=== PATIENT | female | born 1960 | race Caucasian/White ===

== ENCOUNTER 2023-07-23 10:34 | Emergency (ER) | payer BC, SELFPAY ==
[2023-07-23 10:37] VITALS: BP 157/94
--- NOTE | 2023-07-23 13:27 | ED.GENMED ---
History of Present Illness
General
Chief Complaint: Musculo-Skeletal Complaint
Source: patient
Exam Limitations: none
Time Seen by Provider: 07/23/23 10:55
Nursing documentation reviewed up to this point in time: agreed with
Travel History
Have you had any contact with someone who has COVID-19?: No
Do you have any symptoms of coronavirus? Fever > 100 degrees, chills, cough, shortness of breath, sore throat, loss of taste or smell, muscle aches, or headache?: No
History of Present Illness
History of Present Illness:
63-year-old female with past medical history of asthma presenting to the emergency department today with concerns of left-sided calf and ankle discomfort over the past few days denies any inciting event or injury to the area denies numbness or
weakness or additional concerns. No history of blood clots.
Past History
Past History
ED Past Medical History: Asthma
ED Past Surgical History: Orthopedic
Social History
Tobacco: Non-smoker
Alcohol: None
Drug: None
Personal:
Living: with family
Employment: Employed
Review of Systems
Review of Systems
Allergies reviewed?: Yes
All Other Systems: ROS reviewed and negative except as documented in HPI and ROS
Phy Exam
Physical Exam
Physical Exam:
GENERAL: Alert , in no apparent distress
EYE: pupils equal and reactive
NECK: Supple, no significant adenopathy.
ENT: o/p clr, mmm.
CARDIAC: Regular rate and rhythm .
LUNGS: Clear breath sounds bilaterally, no acute respiratory distress, no wheezes/rales/rhonchi
ABDOMEN: Soft, without focal tenderness, no r/g, no cvat
NEUROLOGICAL: Alert and oriented, no focal neuro deficits
SKIN: Warm and dry, skin intact.
MUSCULOSKELETAL: Mild discomfort when squeezing the gastroc tenderness above the patient to the posterior distal Achilles tendon. Mild tenderness to the posterior heel region. No redness or warmth no swelling no tenderness to remainder of the foot
or knee., well perfused.
PSYCH: Normal and appropriate interaction.
Course
Orders/Labs/Results
Orders:
Orders
07/23/23 11:00
Calcaneus, Left 2 View [CR Heel/os Calcis - Left 2 Vw*] Urgent
Comment:
Reason For Exam: pain
Venous Doppler Lwr Ext Left [US Periph Venous LOWER Ext LT] Urgent
Comment:
Reason For Exam: leg pain swelling
Vital Signs
Initial and Last Documented VS:
Initial Vital Signs
Temp Pulse Resp BP Pulse Ox
98.2 F 80 16 157/94 98
07/23/23 10:37 07/23/23 10:37 07/23/23 10:37 07/23/23 10:37 07/23/23 10:37
Last Documented Vital Signs
Temp Pulse Resp BP Pulse Ox
98.2 F 80 16 157/94 98
07/23/23 10:37 07/23/23 10:37 07/23/23 10:37 07/23/23 10:37 07/23/23 10:37
MDM/Problems Addressed
MDM/Problems Addressed:
63-year-old female presenting to the emergency department today with concerns of left-sided discomfort. Here vital signs are normal. Patient well-appearing in no acute distress noted shortness of breath no significant swelling tenderness mainly to
the distal Achilles pain made worse with Achilles. Ultrasound was performed to rule out DVT which did not show evidence of DVT symptoms most consistent with Achilles tendinitis plan for symptomatic treatment and close outpatient follow-up. Return
precautions given.
*Critical Care Note
Total Time (30-74mins, 75-104mins- exclusive of procedures): Not Applicable
ED Attending Note
-
Portions of this chart may have been created with voice recognition software.� Occasional wrong word or��sound alike� substitutions may have occurred due to the inherent limitations of voice recognition software.
Discharge Plan
Departure
Patient Disposition: Home (Routine Discharge)
Date of Disposition: 07/23/23
Time of Disposition: 13:30
Patient with high blood pressure during this ER visit?: No
Condition: Good
Covid-19: Not Applicable
Discharge Problem:
Achilles tendon pain
Instructions: Achilles Tendinopathy (DC)
Prescriptions:
No Action
ondansetron 4 MG tablet,disintegrating
4 mg PO TIDPRN PRN (Reason: NAUSEA) Qty: 5 0RF
acetaminophen 325 MG tablet
325 mg PO Q4HPRN PRN (Reason: pain)
ibuprofen 200 MG tablet
200 mg PO PRN PRN (Reason: pain)
azithromycin 250 MG tablet
250 mg PO DAILY Qty: 6 0RF
Rx Instructions:
500 mg on day one, followed by 250 mg on days 2 through 5.
prednisone 50 MG tablet
50 mg PO Daily Qty: 4 0RF
albuterol sulfate [Albuterol Sulfate HFA] 18 GM HFA aerosol inhaler
18 gm inhalation Q4 Qty: 1 0RF
Referrals:
Earnest Marquez, DO [Family Provider] -
Activity Restrictions/Additional Instructions:
You came to emergency department today with concerns of leg discomfort. Here you had a reassuring ultrasound. This may be consistent with Achilles tendinitis. Please follow closely with the foot doctor. Please elevate ice and rest. Return to
the emergency department for any worsening, new or concerning symptoms.
Interventions
Interventions:
*ED COVID-19 Vaccine History Last Done: 07/23/23 10:37
[2023-07-23 13:41] VITALS: BP 150/83
== END 2023-07-23 13:44 | disposition home or self-care (01) ==
LOC: EMR 10:34
PROVIDERS: EMERGENCY PHYSICIAN Emergency Medicine; FAMILY PHYSICIAN Family Medicine
DX: M76.60 Achilles tendinitis, unspecified leg (principal); J45.909 Unspecified asthma, uncomplicated
CPT/HCPCS: 99284; 73650; 93971

== ENCOUNTER 2025-04-14 01:58 | Inpatient (IN) | payer BC, SELFPAY ==
[2025-04-13 19:13] VITALS: BP 117/85
[2025-04-13 19:36] LABS: Hematocrit 36.4 % (37.0-47.0); Hemoglobin 12.4 g/dL (12.0-16.0); Mean Corp Hgb Conc. 34.1 g/dL (33.0-37.0); Mean Corpuscular Volume 85.6 fL (81.0-99.0); Nucleated Red Blood Cells % 0 %; Platelet Count 302 10^3/uL (130-400); Red Cell Dist. Width 12.7 % (11.5-14.5)
[2025-04-13 19:52] LABS: ALT (SGPT) 27 U/L (0-35); AST (SGOT) 22 U/L (14-36); Albumin 4.6 g/dl (3.5-5.0); Alkaline Phosphatase 81 U/L (38-126); Blood Urea Nitrogen 52 mg/dl (7-17); Calcium 9.4 mg/dl (8.4-10.2); Carbon Dioxide 21 mmol/L (22-30); Chloride 107 mmol/L (98-107); Glucose 128 mg/dl (70-99); Lipase 73 U/L (23-300); Potassium 4.2 mmol/L (3.5-5.1); Sodium 136 mmol/L (135-145); Total Protein 7.2 g/dl (6.3-8.2); eGFR > 60.00
[2025-04-13 20:03] LABS: Troponin I 0.018 ng/ml
[2025-04-13 22:31] VITALS: BP 112/76
[2025-04-13 22:37] VITALS: BMI 34.6
--- NOTE | 2025-04-13 22:56 | ED.GENMED ---
History of Present Illness
General
Chief Complaint: Abdominal Symptoms
Time Seen by Provider: 04/13/25 22:43
History of Present Illness
History of Present Illness:
Patient presents to the emergency department epigastric abdominal pain and diarrhea. Symptoms started overnight around 3 AM last night. Around 4 episodes of dark tarry stools. Feels nauseated. Notes dry heaving without vomiting. Denies any
history of GI bleeding. Patient notes a hx of fibromyalgia and take ibuprofen BID daily.
Past History
Past History
ED Past Medical History: Asthma
ED Past Surgical History: Orthopedic
Social History
Tobacco: Non-smoker
Alcohol: None
Drug: None
Personal:
Living: with family
Employment: Employed
Phy Exam
Physical Exam
Physical Exam:
GENERAL APPEARANCE: Pale appearing
EYES lids/conjunctiva normal
EARS/NOSE/THROAT Mucous membranes moist, uvula midline without oral pharyngeal erythema, exudate or swelling
HEAD/NECK normocephalic atraumatic, neck is supple.
RESPIRATORY respiratory effort normal, speaks in full sentences, no accessory muscle use. Lungs clear to auscultation without rhonchi, wheezes, rales
CARDIAC Regular rate and rhythm, no edema.
ABDOMINAL soft, tenderness in the epigastric and periumbilical region. No distention or peritoneal signs. +melena on SHERRELL
MUSCLES/EXTREMITIES No abnormal range of motion, no swelling.
SKIN Warm, pink and dry. No rashes
NEUROLOGICAL Speech is clear and appropriate. Normal level of consciousness. 5/5 strength in all extremities.
Course
Orders/Labs/Results
Orders:
Orders
04/13/25 19:18
Electrocardiogram (*1) Urgent
Reason for Study: Abdominal Pain
04/13/25 19:19
EKG- Treatment ONCE
04/13/25 19:27
Complete Blood Count/With Diff Urgent
Comprehensive Metabolic Panel Urgent
Lipase Urgent
Troponin I Urgent
04/13/25 22:53
CT Abd/pelvis W Iv Cont Urgent
Comment: ok to change, ordered wrong exam
Reason For Exam: rule out perforation
Pantoprazole 80 mg/100 ml Nss [Protonix] 80 mg in 100 ml IV NOW
Pantoprazole [Protonix IV] 80 mg IV NOW STA
04/13/25 23:01
Ondansetron Injectable [Zofran] 4 mg IV NOW STA
04/13/25 23:45
Type+Screen Urgent
PTT Urgent
Prothrombin Time Urgent
04/14/25 00:46
0.9% Sodium Chloride 500 ml [Nss] 500 ml IV BOLUS
04/14/25 01:46
Admit/Transfer Patient As Directed
Co-Sign Provider:
Level of Care: Inpatient admission
Assign to:: Telemetry
Physician / Group: Balbir
Diagnosis: UGIB
Reason for Telemetry: Arrhythmia
Date to Stop Telemetry: 04/17/25
Time to Stop Telemetry: 11:00
Reason for Hospitalization: UGIB
Expected length of stay greater than two midnights?: Yes
ELOS- Estimated Length of Stay in days: 3
I certify the patient meets the requirements for IP care: Yes
04/14/25 01:48
Code Status As Directed
Resuscitation Status: Full Code
PRN Pain Medication Management As Directed
May give lesser potent ordered pain med per pt: Yes
preference::
Protocol:: Medication orders for pain may be administered in a
manner that supports deferring to patient preference
when the pt is:
- Requesting an ordered lesser potent pain medication.
Least to most potent pain medications are defined
as: acetaminophen < NSAID < tramadol < opioids
(morphine, oxycodone, hydromorphone).
- Requesting a lesser dose of the same medication IF
ORDERED.
- Requesting a less intrusive route of administration
if both routes are prescribed by the provider (PO <
IV).
04/17/25 11:00
DC Protocol for Telemetry ONCE
Abnormal Lab Results
04/13/25
19:27
Hct 36.4 L %
(37.0-47.0)
Absolute Monos (auto) 0.7 H 10^3/uL
(0.1-0.6)
Carbon Dioxide 21 L mmol/L
(22-30)
BUN 52 H mg/dl
(7-17)
Glucose 128 H mg/dl
(70-99)
04/13/25 19:27
04/13/25 19:27
Vital Signs
Initial and Last Documented VS:
Initial Vital Signs
Temp Pulse Resp BP Pulse Ox
99.1 F 113 16 117/85 98
04/13/25 19:13 04/13/25 19:13 04/13/25 19:13 04/13/25 19:13 04/13/25 19:13
Last Documented Vital Signs
Temp Pulse Resp BP Pulse Ox
98.7 F 86 16 127/75 99
04/13/25 22:32 04/14/25 01:30 04/14/25 01:30 04/14/25 01:00 04/14/25 01:30
*Pulse Oximetry
SaO2: 99
Oxygen Mode of Delivery: Room air
Patient hypoxic: no
*Critical Care Note
Total Time (30-74mins, 75-104mins- exclusive of procedures): Not Applicable
ED Attending Note
ED Attending Note
ED Attending Note:
hx of fibromyalgia - takes ibuprofen BID daily, hx of Hpylori years ago
presents with severe epigastric pain, multiple episodes of melena since last night
BP is stable, mild tachycardia
+melena on exam
hgb 12.4, BUN [address] abd/pelv negative for acute pathology
ashley blatchford score of 6
given 80mg protonix , started on protonix drip
-
Portions of this chart may have been created with voice recognition software.� Occasional wrong word or��sound alike� substitutions may have occurred due to the inherent limitations of voice recognition software.
Discharge Plan
Departure
Patient Disposition: Admit
Date of Disposition: 04/14/25
Time of Disposition: 01:07
Presentation/result/management discussed w/ accepting MD/DO: Hospitalist
Discharge Problem:
Acute upper gastrointestinal bleeding
Prescriptions:
No Action
acetaminophen 325 MG tablet
325 mg PO Q4HPRN PRN (Reason: pain)
ibuprofen 200 MG tablet
400 mg PO BID
albuterol sulfate [Albuterol Sulfate HFA] 18 GM HFA aerosol inhaler
18 gm inhalation Q4 Qty: 1 0RF
duloxetine [Cymbalta] 20 mg Capsule,Delayed Release(Dr/Ec)
20 mg PO BID
Referrals:
Earnest Marquez DO [Family Provider, Family Practice]
Interventions
Interventions:
*Risk Screen - Suicide Last Done: 04/13/25 22:38
*General Assessment Last Done: 04/13/25 19:16
*Neglect/Abuse Screening Last Done: 04/13/25 19:16
*ED- Fall Risk Assessment Last Done: 04/13/25 19:16
*ED COVID-19 Vaccine History Last Done: 04/13/25 19:16
*ED Influenza Vaccine History Last Done: 04/13/25 19:16
MO-Nhafca-Jewwbdlrhd Assessment Last Done: 04/13/25 22:38
Discharge Date and Time
Print Language: PAP[place]
[2025-04-13] MEDS: PROTONIX IV 80 MG IV (23:29)
[2025-04-13] MEDS: PROTONIX 100 IV (23:30)
[2025-04-13] MEDS: ZOFRAN 4 MG IV (23:30)
[2025-04-14] VITALS (11 sets, daily range): BP systolic 14–162; BP diastolic 58–87; PULSE 84–113; BMI 35.5
[2025-04-14 00:05] LABS: APTT 25.3 Sec (23.4-35.0); INR 1.04; PT 13.9 Sec (11.4-14.6)
[2025-04-14] MEDS: NSS 500 IV (00:56)
--- NOTE | 2025-04-14 02:01 | HPS.HSE ---
Family Physician
-
Family Physician: Earnest Marquez
Chief Complaint
-
Abd Pain, Nausea, Melena
History of Present Illness
Patient is a 64y F with PMH significant for fibromyalgia who presents to ED complaining of abdominal pain, nausea / dry heaves and loose / black stools. Patient states that she was feeling well until she developed nausea last PM. She had a few
episodes of dry heaves and then - around 3 AM - had three large, black, loose bowel movements. Patient continued to feel nauseated all day. She had abdominal discomfort - primarily across the upper abdomen. She continued to have multiple episodes
of dry heaves / retching, but no actual emesis. Patient presented to the ED this evening for further evaluation. She has had one additional episodes of loose, black stool here in the ED.
Patient denies any prior h/o similar symptoms. She has had colonoscopy in the past which she stats was 'normal'.
She denies any fevers / chills. No urinary complaints.
Patient notes that she takes ibuprofen 400mg BID every day and has done so for years to control her chronic pain.
Medical History
Past Medical History
Past Medical History: Reports Other
Additional Past Medical History:
Fibromyalgia
DDD
Asthma
Obesity
Past Surgical History: Reports Other
Additional Past Surgical History:
Tubal Ligation
Social History
Tobacco: Non-smoker
Alcohol: None
Drug: None
Family History
Family History: Not pertinent
Allergies / Home Medications
Allergies reflects when Allergies were last updated in [facility].
Home Medications with original date entered in [facility]
Allergy/Medication List:
Allergies
Allergy/AdvReac Type Severity Reaction Status Date / Time
Penicillins Allergy Intermediate Rash Verified 07/23/23 10:39
hydromorphone (From Dilaudid) Allergy shaky Verified 07/23/23 10:39
Home Medications
acetaminophen 325 mg tablet 325 mg PO Q4HPRN PRN pain 08/21/16
albuterol sulfate 90 mcg/actuation aerosol inhaler (Albuterol Sulfate HFA) 18 gm inhalation Q4 ##1 08/21/16
ibuprofen 200 mg tablet 400 mg PO BID 08/21/16
duloxetine 20 mg capsule,delayed release 20 mg PO BID 04/14/25
Review of Systems
-
History Source: Patient
A 12 point ROS was completed and negative except as noted: Yes
Constitutional: Reports Fatigue; Denies Fever or Chills
Respiratory: Denies Cough or Trouble Breathing
Cardiac: Denies Chest Pain or Palpitations
Abdomen/GI: Reports Abdominal Pain, Nausea, Diarrhea and Black Stools; Denies Vomiting
: Denies Dysuria or Frequency
Musculoskeletal: Denies Joint Pain or Edema
Neurological: Reports Dizzy; Denies Headache
Psych: Denies Depression or Anxiety
Physical Exam
Vital Signs
Vital Signs
Temp Pulse Resp BP Pulse Ox
98.7 F 86 16 127/75 99
04/13/25 22:32 04/14/25 01:30 04/14/25 01:30 04/14/25 01:00 04/14/25 01:30
Physical Exam
General: Other (Mildly pale-appearing 64y F in no acute distress.)
HEENT: Other (Dry MM, thick neck.)
Respiratory: Clear; No Wheezes, Rales or Rhonchi
Cardiac: S1/S2 and Tachycardia; No Murmur
GI: Other (Mildly, diffusely tender. No focal tenderness, rebound or guarding. Pos BS.)
Musculoskeletal: No Clubbing, No Cyanosis and No Edema
Neuro: AO x 3
Laboratory Results
-
04/13/25 19:27
04/13/25 19:27
Laboratory Results
PT 13.9 Sec (11.4-14.6) 04/13/25 23:45
INR 1.04 04/13/25 23:45
APTT 25.3 Sec (23.4-35.0) 04/13/25 23:45
Total Bilirubin 0.5 mg/dl (0.2-1.3) 04/13/25 19:27
AST 22 U/L (14-36) 04/13/25 19:27
ALT 27 U/L (0-35) 04/13/25 19:27
Alkaline Phosphatase 81 U/L (38-126) 04/13/25 19:27
Troponin I 0.018 ng/ml 04/13/25 19:27
Lipase 73 U/L (23-300) 04/13/25 19:27
Impression/Plan
-
A/P: Patient is a 64y F with PMH significant for fibromyalgia on chronic NSAIDs who presents to ED complaining of abdominal pain, nausea and black stools.
UGIB
- Admit for further evaluation and treatment.
- Patient presents with upper abdominal discomfort, dry heaves and black stools since last PM.
- NPO, IVFs, IV PPI infusion.
- Follow H&H. Transfuse if needed.
- GI evaluation for probable endoscopic examination.
- Avoid further NSAIDs.
Fibromyalgia
- Hold all PO meds acutely.
- Resume duloxetine when able to take PO and titrate for effectiveness.
- Will need to find alternate pain control regimen that does not involve NSAIDs.
Abnormal CT
- Preliminary report from [facility] suggests mild stranding / possible sigmoid diverticulitis.
- This is not consistent with patient's presentation.
- Currently afebrile, no leukocytosis, etc.
- Observe off of abx for now. Begin ceftriaxone / metronidazole if any fever, etc.
Obesity due to excess calories
- Affects all aspects of care.
- Encourage healthy diet and increased exercise with goal of weight loss.
DVT Prophylaxis: SCDs
Code Status: Full
--- NOTE | 2025-04-14 04:03 | PTCARENOTE ---
Pt arrived to unit, AAOx3, call bright in reach, bed in lowest position, bed locked, purewick present from ED, protonix IV cont infusion, and oriented to unit. Pt was tail puller from stretcher to bed.
[2025-04-14 04:08] LABS: Hematocrit 34.7 % (37.0-47.0); Hemoglobin 11.5 g/dL (12.0-16.0)
[2025-04-14] MEDS: NSS 1000 IV ×2 (04:41→11:24)
[2025-04-14] MEDS: ZOFRAN 4 MG IV (04:51)
--- NOTE | 2025-04-14 06:03 | CON.GI ---
Consultation
-
Date/Time Consultation Requested: 04/14/25, 034
Date/Time Consultation Performed: 04/14/25, 06
Requesting Provider: Dr Carlo Mcgregor
Performing Provider: Dr Ras Cotton
Reason for Consultation: UGIB
Medical History
Chief Complaint / HPI
Chief Complaint: Abd Pain, Nausea, Melena
History of Present Illness:
Ms. Longo is a 64 y.o female with a past medical history of obesity and fibromyalgia who presented to the ED with abdominal pain, nausea and melena concerning for an UGIB. GI has been consulted for further evaluation and management.
Patient states that she was feeling well until she developed nausea last PM. She had a few episodes of dry heaves and then - around 3 AM - had three large, black, loose bowel movements. Patient continued to feel nauseated all day. She had
abdominal discomfort - primarily across the upper abdomen. She continued to have multiple episodes of dry heaves / retching, but no actual emesis. Patient presented to the ED this evening for further evaluation. She has had one additional
episodes of loose, black stool here in the ED. Patient denies any prior h/o similar symptoms. She has had colonoscopy in the past which she stats was reportedly normal. No prior EGD in the past. Otherwise, no other fevers, chills or other
constitutional symptoms. However, notes significant Ibuprofen 400 mg BiD every day for her chronic pain. Otherwise, no significant alcohol use. She is not on any blood thinners or antiplatelets.
In the ED, patient was febrile and HD-stable. Labs notable for BUN 52 and normal LFTs and lipase 73. CBC with WBC 8.0, Hgb 12.4, and plts 302. Preliminary report from [facility] suggests mild stranding / possible sigmoid diverticulitis however
not felt to be consistent with her presentation. Patient was kept NPO and started on IV PPI gtt and admitted to medicine for further managemenet.
Past Medical History
Past Medical History: Other (Fibromyalgia DDD Asthma Obesity)
Past Surgical History: Other (Tubal Ligation)
Social History
Tobacco: Non-Smoker
Alcohol: None
Drug: None
Family History
Family History: Reviewed & Not Pertinent
Allergies / Home Medications
Allergy/AdvReac Type Severity Reaction Status Date / Time
Penicillins Allergy Intermediate Rash Verified 07/23/23 10:39
hydromorphone (From Dilaudid) Allergy shaky Verified 07/23/23 10:39
�Medication �Instructions �Recorded
acetaminophen 325 mg tablet 325 mg PO Q4HPRN PRN pain 08/21/16
albuterol sulfate 90 mcg/actuation 18 gm inhalation Q4 ##1 08/21/16
aerosol inhaler (Albuterol Sulfate
HFA)
ibuprofen 200 mg tablet 400 mg PO BID 08/21/16
duloxetine 20 mg capsule,delayed 20 mg PO BID 04/14/25
release
Review of Systems
-
All other systems: A 12 pt ROS was Negative except as stated above in HPI
Vital Signs
Temp Pulse Resp BP Pulse Ox
98.9 F 87 22 133/76 98
04/14/25 03:42 04/14/25 03:42 04/14/25 03:42 04/14/25 03:42 04/14/25 03:42
Physical Exam
Exam
General: Well Developed (Obese), No Apparent Distress and Comfortable
HEENT: Anicteric and Moist Mucous Membranes
Respiratory: Other (Normal WOB on room air)
Cardiac: Regular Rhythm
GI: Soft and Tender (Mild TTP in epigastric region without rebound or guarding)
Skin: Warm
Neuro: Nonfocal/Grossly Intact
Psych: Calm
Results
WBC 8.0 10^3/uL (4.8-10.8) 04/13/25 19:27
Hgb 11.5 g/dL (12.0-16.0) L 04/14/25 04:02
Hct 34.7 % (37.0-47.0) L 04/14/25 04:02
MCV 85.6 fL (81.0-99.0) 04/13/25 19:27
Plt Count 302 10^3/uL (130-400) 04/13/25 19:27
Absolute Neuts (auto) 4.8 10^3/uL (1.4-6.5) 04/13/25 19:27
PT 13.9 Sec (11.4-14.6) 04/13/25 23:45
INR 1.04 04/13/25 23:45
APTT 25.3 Sec (23.4-35.0) 04/13/25 23:45
Sodium 136 mmol/L (135-145) 04/13/25 19:27
Potassium 4.2 mmol/L (3.5-5.1) 04/13/25 19:27
Chloride 107 mmol/L (98-107) 04/13/25 19:
Carbon Dioxide 21 mmol/L (22-30) L 04/13/25 19:27
BUN 52 mg/dl (7-17) H 04/13/25 19:27
Creatinine 0.6 mg/dL (0.6-1.0) 04/13/25 19:27
Calcium 9.4 mg/dl (8.4-10.2) 04/13/25 19:27
Total Bilirubin 0.5 mg/dl (0.2-1.3) 04/13/25 19:27
AST 22 U/L (14-36) 04/13/25 19:27
ALT 27 U/L (0-35) 04/13/25 19:27
Alkaline Phosphatase 81 U/L (38-126) 04/13/25 19:27
Lipase 73 U/L (23-300) 04/13/25 19:27
Diagnostic Image Results: As above
Assessment / Plan
-
Ms. Longo is a 64 y.o female with a past medical history of obesity and fibromyalgia who presented to the ED with abdominal pain, nausea and melena concerning for an UGIB. GI has been consulted for further evaluation and management.
#Melena c/f
#UGIB
#Significant NSAID Use
#Acute Blood Loss Anemia
Impression: Patient presenting with abdominal pain, nausea as well as multiple black loose stools consistent with melena concerning for an upper GI bleed. Suspect secondary to NSAID induced PUD given her history as she was taking significant
amounts of ibuprofen for her chronic pain. No history of liver disease and normal LFTs. BUN also significantly elevated further supportive of an upper GI bleed. Thus, much less likely a lower GI bleed although previous CT imaging concerning for
possible sigmoid diverticulitis however this is not consistent with her presentation. Slight drift in Hgb 12.4 -> 11.5 and suspect some degree of hemoconcentration (prev baseline 14-15s). She remains hemodynamically stable however would benefit
from an upper endoscopy for further evaluation and for potential therapeutic purposes.
Recommendations:
- Keep strict NPO, continue IVF
- Ensure two large bore IVs
- IV PPI gtt
- Trend Hgb with serial CBC, transfuse PRN
- Plan for EGD later today, 04/14/25. See same day EGD report for additional findings and recommendations. Discussed risks and benefits of EGD
- Await final report of CT Abd/pelvis
- Strict avoidance of all NSAIDs
- Rest of care per primary team
#C/f Possible Diverticulitis
Preliminary CT imaging demonstrating mild stranding/possible sigmoid diverticulitis she denies any left lower quadrant abdominal pain or other symptoms to support this. She remains afebrile without leukocytosis. Denies any prior history of
diverticulitis in the past and reports a colonoscopy which was reportedly normal 2-3 years ago.
-Agree with holding antibiotics, low threshold to start IV antibiotics if any fevers or worsening lower abdominal pain
-Await final read of CT abdomen/pelvis
- Strict avoidance of NSAIDs as above
Discussed with primary internal medicine team. Please call with any questions or concerns.
Data Reviewed
-
Radiology: Image Personally Visualized and interpreted and Report Reviewed by me
CT Scan: Report Reviewed by me
Old Records: Reviewed
-
-
Thank you for consultation and allowing me to participate in the patient's care. Please call the [facility] GI physician during the after hours with any questions or concerns.
--- NOTE | 2025-04-14 08:32 | W.PN.HOSP.TC ---
Today's Communication/Plan
-
Clear liquid diet.
Advance diet as tolerated.
Pantoprazole 40 mg IV twice daily.
Switch to oral pantoprazole upon discharge.
Monitor H&H
Assessment / Plan
Assessment / Plan
Impression:
Patient is a 64y F with PMH significant for fibromyalgia who presents to ED complaining of abdominal pain, nausea / dry heaves and loose / black stools. Patient states that she was feeling well until she developed nausea last PM. She had a few
episodes of dry heaves and then - around 3 AM - had three large, black, loose bowel movements. Patient continued to feel nauseated all day. She had abdominal discomfort - primarily across the upper abdomen. She continued to have multiple episodes
of dry heaves / retching, but no actual emesis. Patient presented to the ED this evening for further evaluation. She has had one additional episodes of loose, black stool here in the ED. Patient denies any prior h/o similar symptoms. She has had
colonoscopy in the past which she stats was 'normal'. She denies any fevers / chills. No urinary complaints.
Patient notes that she takes ibuprofen 400mg BID every day and has done so for years to control her chronic pain.
Admitted, GI consulted, for EGD today.
Assessment/plan:
Upper Gastrointestinal Bleed (UGIB)
Admitted for further evaluation and treatment.
Patient reports upper abdominal discomfort, dry heaves, and melena .
Seen by GI underwent EGD which showed:
-Normal proximal esophagus, mid esophagus and distal esophagus.
- Non-obstructing Schatzki ring.
- Z-line regular, 38 cm from the incisors.
- Multiple benign appearing fundic gastric polyps and all were less
than 1 cm. Left intact as not to obscure clinical picture.
- Four, non-bleeding, well-healed gastric ulcers with a clean ulcer
base (Barry Class III) in the pre-pyloric region and gastric
antrum. Biopsied.
- Otherwise, normal stomach on direct and retroflexion views.
Biopsies were taken with a cold forceps for Helicobacter pylori
testing.
- Normal examined duodenum up to third portion without any blood or
ulcerations.
- The examination was otherwise normal without any old or fresh
blood throughout the examined upper GI tract.
Monitor H&H; transfuse PRN.
Clear liquid diet then advance as tolerated
GI signed off
Avoid NSAIDs.
Acute blood loss anemia.
Secondary to GI bleed
Monitor hemoglobin and transfuse if needed.
Fibromyalgia
Hold all oral medications acutely.
Resume duloxetine when able to tolerate PO; titrate for effectiveness.
Identify alternative pain control regimen without NSAIDs.
Abnormal CT Findings
Preliminary report: mild stranding/possible sigmoid diverticulitis ([facility]). Pending official report
Not consistent with current clinical presentation.
Afebrile, no leukocytosis.
Plan:
Observe without antibiotics for now.
Initiate ceftriaxone + metronidazole if fever or clinical change.
Obesity (due to excess caloric intake)
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
DVT Prophylaxis: Sequential Compression Devices (SCDs)
Code Status: Full
Diet: Clear liquid
Family communication: Discussed with family at bedside
Disposition: Clear liquid diet.
Advance diet as tolerated.
Pantoprazole 40 mg IV twice daily.
Switch to oral pantoprazole upon discharge.
Monitor H&H
Total time spent on today's encounter was 55 minutes which included time spent in counseling the patient/family regarding diagnosis and treatment plan as listed above, goals of care, and symptom management. Case was discussed with nursing staff,
specialists, and care coordinators/case management. All labs and imaging personally reviewed by me. Remainder the time spent in detailed review of previous records, lab data, imaging, and other medical provider documentation.
Anticipated Discharge: Within 24 hours
Subjective/Interval History
-
Date of Service: April 14, 2025
Patient seen and examined at bedside, family at bedside, denies any chest pain or shortness of breath, complaining of epigastric pain, patient was seen before EGD.
Objective Data
-
Labs:
Laboratory Results
04/13/25 04/14/25 04/14/25
23:45 04:02 06:00
Hgb 11.5 L
Hct 34.7 L
PT 13.9
INR 1.04
APTT 25.3
Sodium Pending
Potassium Pending
Chloride Pending
Carbon Dioxide Pending
BUN Pending
Creatinine Pending
Glucose Pending
Calcium Pending
04/14/25 04/14/25 04/14/25
09:45 15:45 21:45
Hgb Pending Pending Pending
Hct Pending Pending Pending
PT
INR
APTT
Sodium
Potassium
Chloride
Carbon Dioxide
BUN
Creatinine
Glucose
Calcium
Vital Signs:
Vital Signs
Temp Pulse Resp BP Pulse Ox
98.4 F 93 16 140/80 96
04/14/25 07:35 04/14/25 07:35 04/14/25 07:35 04/14/25 07:35 04/14/25 07:35
I&O
04/13/25 04/14/25 04/15/25
06:59 06:59 06:59
Output Total 300 / 300
Balance -300 / -300
Physical Exam
-
General: Well Developed, Well Nourished, No Apparent Distress and Comfortable
HEENT: Normocephalic, Atraumatic, Moist Mucous Membranes, No Ptosis, PERRLA and Nose Appears Normal
Respiratory: Clear to Auscultation and Non Labored Respirations
Cardiac: Regular Rhythm and S1/S2
Breast: Deferred by me
GI: Soft, Nontender, Nondistended and Normal Bowel Sounds
Genito-urinary: No Costovertebral Tender
Musculoskeletal: No Clubbing, No Cyanosis and No Edema
Skin: Warm
Neuro: Awake, Alert, Oriented, AO x 3 and No Motor Deficits
Psych: Calm
Data Reviewed
-
Diagnostic Radiology: Image personally visualized and interpreted and Report Reviewed by me
CT Scan: Image personally visualized and interpreted and Report Reviewed by me
Ultrasound: Image personally visualized and interpreted and Report Reviewed by me
MRI: Image personally visualized and interpreted and Report Reviewed by me
Medical Tests (Nuc Med, Echo etc): Image personally visualized and interpreted and Report Reviewed by me
Labs: Labs Reviewed by me
Old Records: Reviewed
[2025-04-14 10:22] LABS: Hematocrit 32.7 % (37.0-47.0); Hemoglobin 10.6 g/dL (12.0-16.0)
[2025-04-14 10:54] LABS: Blood Urea Nitrogen 36 mg/dl (7-17); Calcium 9.1 mg/dl (8.4-10.2); Carbon Dioxide 24 mmol/L (22-30); Chloride 109 mmol/L (98-107); Estimated Creatinine Clearance 97 ml/min; Glucose 116 mg/dl (70-99); Potassium 4.2 mmol/L (3.5-5.1); Sodium 139 mmol/L (135-145); eGFR > 60.00
[2025-04-14] MEDS: PROTONIX 100 IV ×2 (11:21→22:27)
--- NOTE | 2025-04-14 12:41 | CM ---
CM reviewed chart, patient seen bedside with , initial assessment completed.
Patient is a 64y F with PMH significant for fibromyalgia who presents to ED complaining of abdominal pain, nausea / dry heaves and loose / black stools.
Patient reside with her in a one story home, one step to enter.
Patient denies use of DME, VN/SNF.
[facility], confirms prescription coverage.
Patient denies insecurities at home.
CM will continue to follow.
Plan; home no needs
[2025-04-14 22:13] LABS: Hematocrit 29.5 % (37.0-47.0); Hemoglobin 9.6 g/dL (12.0-16.0)
[2025-04-15] MEDS: NSS IV (00:08)
[2025-04-15 03:34] VITALS: BP 121/68
--- NOTE | 2025-04-15 04:46 | DOWNTIME ---
There was a [employer] Downtime on 04/15/2025 from 0100 to 04/15/2025 at 0255. Downtime documentation of patient's care, including medication administrations, has been reconciled in the electronic record per guidelines. Refer to the
patient's paper chart under the miscellaneous tab to see printed paper medication records and downtime forms.
[2025-04-15] MEDS: PROTONIX 100 IV (05:06)
[2025-04-15 07:09] LABS: Blood Urea Nitrogen 17 mg/dl (7-17); Calcium 8.8 mg/dl (8.4-10.2); Carbon Dioxide 27 mmol/L (22-30); Chloride 108 mmol/L (98-107); Estimated Creatinine Clearance 114 ml/min; Glucose 111 mg/dl (70-99); Potassium 4.0 mmol/L (3.5-5.1); Sodium 137 mmol/L (135-145); eGFR > 60.00
[2025-04-15 07:13] LABS: Hematocrit 27.5 % (37.0-47.0); Hemoglobin 9.2 g/dL (12.0-16.0); Mean Corp Hgb Conc. 33.5 g/dL (33.0-37.0); Mean Corpuscular Volume 87.0 fL (81.0-99.0); Platelet Count 175 10^3/uL (130-400); Red Cell Dist. Width 13.1 % (11.5-14.5)
[2025-04-15 07:30] VITALS: BP 149/78
[2025-04-15] MEDS: PROTONIX 40 MG PO (10:28)
[2025-04-15 11:21] VITALS: BP 144/74
--- NOTE | 2025-04-15 13:31 | CM ---
CM reviewed chart, patient for d/c today.
Patients will provide transport home.
CM will continue to follow, plan home no needs.
Plan; home no needs
--- NOTE | 2025-04-15 16:35 | W.DCSUMMARY ---
Discharge Summary
Discharge Data
Date of Admission: 04/14/25
Date of Discharge: 04/15/25
Total time spent discharging patient (in min): 31
-
Pending Results: Yes (H. pylori testing of gastric ulcers)
Hospital Course
Attending physician on day of discharge:
Surekha Quevedo MD
Admission diagnosis:
Upper GI bleed
Discharge diagnosis:
Peptic ulcer disease
Secondary diagnoses:
Acute blood loss anemia
Fibromyalgia
Consultations:
GI
Procedures:
EGD Impression:
- Normal proximal esophagus, mid esophagus and distal esophagus.
- Non-obstructing Schatzki ring.
- Z-line regular, 38 cm from the incisors.
- Multiple benign appearing fundic gastric polyps and all were less
than 1 cm. Left intact as not to obscure clinical picture.
- Four, non-bleeding, well-healed gastric ulcers with a clean ulcer
base (Barry Class III) in the pre-pyloric region and gastric
antrum. Biopsied.
- Otherwise, normal stomach on direct and retroflexion views.
Biopsies were taken with a cold forceps for Helicobacter pylori
testing.
- Normal examined duodenum up to third portion without any blood or
ulcerations.
- The examination was otherwise normal without any old or fresh
blood throughout the examined upper GI tract
Hospital course:
64F with fibromyalgia P/W nausea, abdominal pain, black stools. Found to have acute blood loss anemia from upper GI bleed, started on IV Protonix, IV fluid. GI consulted and performed EGD which showed 4 nonbleeding gastric ulcers. Patient's diet
was advanced and her PPI was changed to twice daily oral for 8 weeks, then daily indefinitely, repeat endoscopy per GI as outpatient.
Diagnostic Findings:
CT A/P
IMPRESSION:
1. Question mild acute sigmoid diverticulitis as above. No signs of abscess formation. No other acute intra-abdominal process identified.
2. Hepatic fatty infiltration.
3. Diverticulosis without diverticulitis.
4. Small uterine masses most likely representing fibroids.
Physical exam on discharge:
Gen: NAD
HEENT: PERRLA, EOMI, MMM, neck supple
Cards: RRR, no M/G/R
Resp: Lungs CTAB, no W/R/R
GI: soft, NT/ND/NABS
MSK: No edema
Skin: warm and dry, no rash, ulcer or lesions
Heme: No LAD
Psych: Calm
Neuro: AAOx3
Discharge disposition:
Home
Discharge Plan
-
Patient Disposition: Home (Routine Discharge)
Discharge Diagnosis/Procedures: Acute GI bleed
Diet: Regular
Referrals:
Earnest Marquez DO [Family Provider, Family Practice]
Ras Cotton DO [Active, Gastroenterology]
Additional Discharge Medication Instructions: Pantoprazole 40 mg BiD for 8 weeks then once daily until repeat EGD. Await path results. Will need a repeat EGD in 2-3 months to ensure healing of gastric ulcers. Strict avoidance of all NSAIDs (aspirin,
ibuprofen, Motrin, naproxen, Naprosyn, Toradol, Mobic, etc.)
Prescriptions:
New
pantoprazole 40 mg Tablet,Delayed Release (Dr/Ec)
40 mg PO BID 30 Days Qty: 60 2RF
Continued
acetaminophen 325 MG tablet
325 mg PO Q4HPRN PRN (Reason: pain)
albuterol sulfate [Albuterol Sulfate HFA] 18 GM HFA aerosol inhaler
18 gm inhalation Q4 Qty: 1 0RF
duloxetine 20 mg Capsule,Delayed Release(Dr/Ec)
20 mg PO BID
Discontinued
ibuprofen 200 MG tablet
400 mg PO BID
Discharge Orders:
Discharge Patient (As Directed); Ordered 04/15/25
Ordered By: Surekha Quevedo
Discharge Date and Time
Discharge Date/Time: 04/15/25 13:32
Print Language: SAMI
== END 2025-04-15 13:32 | disposition home or self-care (01) | DRG 378 ==
LOC: 4 WEST ACU 01:58
PROVIDERS: Emergency Medicine; General Practice; ADMITTING PHYSICIAN Hospitalist; ATTENDING PHYSICIAN Internal Medicine; CONSULT PHYSICIAN Student in an Organized Health Care Education/Training Program; EMERGENCY PHYSICIAN Emergency Medicine; FAMILY PHYSICIAN Family Medicine
PROC: 0DB78ZX Excision of Stomach, Pylorus, Via Natural or Artificial Opening Endoscopic, Diagnostic (ICD-10-PCS; 2025-04-14)
PROC: 0DB68ZX Excision of Stomach, Via Natural or Artificial Opening Endoscopic, Diagnostic (ICD-10-PCS; 2025-04-14)
DX: K25.4 Chronic or unspecified gastric ulcer with hemorrhage (principal); D62 Acute posthemorrhagic anemia; K22.2 Esophageal obstruction; K31.7 Polyp of stomach and duodenum; M79.7 Fibromyalgia; K57.30 Diverticulosis of large intestine without perforation or abscess without bleeding; J45.909 Unspecified asthma, uncomplicated; Z88.0 Allergy status to penicillin; G89.29 Other chronic pain; E66.09 Other obesity due to excess calories; Z68.35 Body mass index [BMI] 35.0-35.9, adult; Z79.1 Long term (current) use of non-steroidal anti-inflammatories (NSAID); Z79.899 Other long term (current) drug therapy
CPT/HCPCS: 74177; 80048; 80053; 83690; 84484; 85014; 85018; 85025; 85027; 85610; 85730; 86850; 86900; 86901; 88305; 88342; 93005; 96360; 99285; Q9967